=== PATIENT | male | born 1990 | race Caucasian/White ===

== ENCOUNTER 2020-05-22 13:01 | Emergency (ER) | payer MEDICAID ==
[~2020-05-22] VITALS: Ht 406.4 cm; Wt 106.6 kg
[2020-05-22 13:05] VITALS: BP 135/80
--- NOTE | 2020-05-22 13:40 | NUR ---
Patient discharged to home in stable condition. Written and verbal after care instructions given. Patient verbalizes understanding of instruction. Pt ambulatory with a steady gait
== END 2020-05-22 13:41 | disposition home or self-care (01) ==
LOC: ER 13:11
DX: M79.632 Pain in left forearm (principal)